=== PATIENT | female | born 1985 | race Caucasian/White ===

== ENCOUNTER 2021-11-19 15:29 | Emergency (ER) | payer BC ==
[2021-11-19] MEDS ORDERED: Sodium Chloride 0.9% 1,000 ML IV ONE (15:58)
[2021-11-19] MEDS ORDERED: Sodium Chloride 0.9% 10 ML Syringe FLUSH PRN (15:58)
[2021-11-19] MEDS ORDERED: Sodium Chloride 0.9% 2.5 ML Syringe FLUSH PRN (15:58)
[2021-11-19 17:28] LABS: CARBON DIOXIDE,CO2 23.9 mmol/L (21.0-32.0); POTASSIUM,K 3.9 mmol/L (3.5-5.1)
[2021-11-19] MEDS ORDERED: Iopamidol 755 MG/ML 500 ML Multipack Bottle IVPUSH STA (18:28)
== END 2021-11-19 19:56 | disposition home or self-care (01) ==
LOC: MW.ED 15:29
DX: R00.2 Palpitations (principal); R79.1 Abnormal coagulation profile
CPT/HCPCS: 36415; 71045; 71275; 80053; 83735; 84443; 84484; 84703; 85025; 85379; 93005; 99285; J3490; J7030; Q9967